=== PATIENT | male | born 1955 | race Caucasian/White ===

== ENCOUNTER 2019-12-07 16:07 | Emergency (ER) | payer OTHER ==
[~2019-12-07] VITALS: Ht 177.8 cm; Wt 74.8 kg
[2019-12-07] MEDS ORDERED: ZESTRIL5 MG (16:27)
== END 2019-12-07 18:17 | disposition home or self-care (01) ==
LOC: ER 16:07
DX: M51.17 Intervertebral disc disorders with radiculopathy, lumbosacral region (principal)